=== PATIENT | female | born 1965 | race Caucasian/White ===

== ENCOUNTER 2017-01-27 05:41 | Day surgery (SDC) | payer OTHER ==
[~2017-01-27] VITALS: Ht 160 cm; Wt 63.0 kg
[~2017-01-27 05:41] MED LIST: EXCEDRIN MIGRA1 EAC3 PO; LASIX20 MG PO; MULTIPLE VITAM1 EACH PO; VOLTAREN 1% GE100 GM TP
[2017-01-27 06:21] VITALS: BP 137/82
[2017-01-27] MEDS ORDERED: ENDOCET 5-3251 EACH PO (09:12)
[2017-01-27] MEDS ORDERED: IBUPROFEN800 MG PO (09:12)
[2017-01-27 12:24] VITALS: BP 137/58
[2017-01-27 13:15] VITALS: BP 132/61
== END 2017-01-27 13:39 | disposition home or self-care (01) ==
LOC: SDC 05:41
DX: N92.0 Excessive and frequent menstruation with regular cycle (principal); N94.6 Dysmenorrhea, unspecified; N80.0 Endometriosis of uterus
CPT/HCPCS: 88307; J0131; J0690; J1100; J1170; J1885; J2250; J2405; J2710; J2765